=== PATIENT | female | born 2000 | race Native Hawaiian/Other Pacific Islander ===

== ENCOUNTER 2022-05-23 14:01 | Emergency (ER) | payer BC ==
[~2022-05-23] VITALS: Ht 154.9 cm; Wt 54.0 kg
--- NOTE | 2022-05-23 14:14 | NUR ---
BIBS c/o cough, fever, swollen lymp nodes sob since saturday.
--- NOTE | 2022-05-23 14:16 | NUR ---
AT BEDSIDE FOR EVAL.
[2022-05-23] MEDS ORDERED: AMOX500C2 PO (14:34)
[2022-05-23] MEDS ORDERED: IBUP-1955 PO (14:34)
--- NOTE | 2022-05-23 14:39 | NUR ---
SWAB FOR RAPID INFLUENZA AND RAPID GROUP STREP SEN TO LAB
--- NOTE | 2022-05-23 14:46 | NUR ---
SWAB FOR NOVEL CORONAVIRUS SEN TO LAB
--- NOTE | 2022-05-23 14:51 | NUR ---
Patient discharged to home in stable condition. Written and verbal after care instructions given. Patient verbalizes understanding of instruction.
[2022-05-23 14:52] VITALS: BP 119/75
== END 2022-05-23 14:51 | disposition home or self-care (01) ==
LOC: ER 14:07
DX: J06.9 Acute upper respiratory infection, unspecified (principal); J02.9 Acute pharyngitis, unspecified; Z20.822 Contact with and (suspected) exposure to COVID-19; M79.7 Fibromyalgia
CPT/HCPCS: 99283; 87426; 87804 ×2; 87880; U0003; C9803; 86403-TC